=== PATIENT | female | born 1945 | race Caucasian/White ===

== ENCOUNTER 2018-05-15 12:20 | Outpatient (CLI) | payer MEDICARE, BC | END 2018-05-15 12:21 | disposition home or self-care (01) | LOC: BICMAMMO 12:20 | PROVIDERS: ATTEND Internal Medicine | DX: Z12.31 Encounter for screening mammogram for malignant neoplasm of breast (principal) | CPT/HCPCS: 77063; 77067 ==

== ENCOUNTER 2018-12-22 09:23 | Outpatient (CLI) | payer MEDICARE, BC ==
--- NOTE | 2018-12-22 10:04 | ULT ---
ULTRASOUND ABDOMEN COMPLETE: DATE: 12/22/2018 HISTORY: 73-year-old female with right upper quadrant and mid epigastric abdominal pain. FINDINGS: Gallbladder: Normal wall thickness. No gallstones or sludge identified. No pericholecystic fluid. Liver: Normal parenchymal echogenicity. Bilateral kidneys: No hydronephrosis. 0.8 cm exophytic cortical cyst right midpole. 1.5 cm exophytic cortical cyst left renal upper midpole. Pancreas: Nonspecific sonographic appearance. Common duct caliber: 4 mm. Abdominal aorta: No aneurysm Inferior vena cava: Unremarkable where visualized. Spleen: No splenomegaly IMPRESSION: 1. Bilateral renal cysts, at least one on each side. 2. Otherwise normal.
== END 2018-12-22 09:24 | disposition home or self-care (01) ==
LOC: BICULT 09:23
PROVIDERS: ATTEND Internal Medicine
DX: R10.13 Epigastric pain (principal); R10.11 Right upper quadrant pain; R10.31 Right lower quadrant pain; R10.32 Left lower quadrant pain; N28.1 Cyst of kidney, acquired
CPT/HCPCS: 76700